=== PATIENT | female | born 1995 | race Caucasian/White ===

== ENCOUNTER 2017-03-20 16:55 | Emergency (ER) | payer MEDICAID ==
[~2017-03-20] VITALS: Ht 154.9 cm; Wt 80.0 kg
[2017-03-20 17:05] VITALS: BP 122/84
== END 2017-03-20 18:14 | disposition home or self-care (01) ==
LOC: ED 18:00
DX: M72.2 Plantar fascial fibromatosis (principal)
CPT/HCPCS: 99284